=== PATIENT | female | born 1980 | race Caucasian/White ===

== ENCOUNTER → 2018-01-16 11:13 | Day surgery (SDC) | payer OTHER, SELFPAY ==
[2018-01-15 14:01] VITALS: BMI 19.3
[2018-01-16] VITALS (10 sets, daily range): BP systolic 98–141; BP diastolic 64–88; PULSE 60–80; RESP 13–17; TEMP 36.1–36.4; O2SAT 96–100; BMI 19.2
--- NOTE | 2018-01-16 13:13 | PM.PREOP ---
Pre-operative Note Interval Note Changes to the H&P: None Pre-op Check: History & Physical Reviewed
[2018-01-16] MEDS: SCOPOLAMINE 1 PATCH TOP (13:14)
[2018-01-16] MEDS: LACTATED RINGERS 1,000 ML 42 ML IV (13:20)
--- NOTE | 2018-01-16 13:28 | SUR.OPER ---
Lithotomy on padded OR bed, head on pillow, arms secured on padded arm boards at <90 degrees abduction. Legs secured in padded yellow fins stirrups.
[2018-01-16] MEDS: BUPIVACAINE 0.25% W/ EPI 50 ML VIAL INJ (14:00)
[2018-01-16] MEDS: SILVER NITRATE STICK 2 EACH TOP (14:02)
[2018-01-16] MEDS: fentaNYL 100 MCG/2 ML INJ 25 MCG IV (14:36)
[2018-01-16] MEDS: ACETAMINOPHEN IV 1,000 MG/100 ML VIAL 400 MG IV (14:55)
--- NOTE | 2018-01-16 14:59 | OP_ITS ---
Procedure: Procedures Operation Date: 01/16/18 13:15 Actual Procedures Side Surgeon p Diagnostic laparoscopy w/possible fulgeration of endometriosis, poss biopsies Toña Medrano MD s Intrauterine Device Insertion Toña Medrano MD Indications: Patient is a 37-year-old [employer] 1 with several months of worsening pelvic pain and abdominal pain. Pain has not been confined to her menses but worsens around the time of her menses and is accompanied by nausea. Pain intensity is up to 7/10, and the location varies with symptoms being more periumbilical, along the sides, or deep in the pelvis. She also describes pain and fullness at the right upper quadrant and right flank. She only takes Motrin 200 mg a few times per week but tries not to take too much. Pain is increased with crutches. She also complains of bloating and abdominal distention with nausea. With regards to her menses, she has passed large clots for several menses in the last few months, although this has been intermittent. She has had a negative CT scan of the abdomen and pelvis. Her [employer] history is otherwise notable for hysteroscopic resection of polyps in the past. She has been reluctant to start medication withou having a clear idea of what is causing her pain. She has been seen by a silk screen operator and had a negative colonoscopy. She does have a past medical history of diverticulitis but no current findings by colonoscopy or on CT. She has a family history of irritable bowel syndrome, but she herself has not been diagnosed with such. Prior to initiating hormonal therapy for suppression of ovulation (as empiric treatment for an ovulatory related pain), the patient desired to have a laparoscopy for further evaluation. The risks benefits limitations and alternatives to such were discussed and the consent was reviewed and signed prior to the date of surgery. Surgeon: Toña Medrano Health Services Manager: Jerrod Moss Anesthesia Type: General Operative Notes Findings: 1. Exam under anesthesia: The uterus is anteverted, and no adnexal masses are palpable. 2. Laparoscopic findings: The pelvis was visualized completely. Fallopian tubes and ovaries were normal in appearance. There is a small approximately 5 mm to 7 mm subserosal uterine fibroid at the anterior lower uterine segment. The appendix was visualized and appeared normal. The liver edge was visualized and appeared normal. The cul-de-sac, uterosacral ligaments, ovarian fossa say, and anterior bladder all appeared normal with no evidence of endometriosis or other abnormalities. Closure Type: primary Specimen(s): none Applied: device(s) and implant(s) (Mirena Intrauterine Device, Lot # [id number], exp date 12/2019) Estimated blood loss (mL): 15 Blood products transfused: none Procedure in detail: The patient was taken to the operating room, where general endotracheal anesthesia was administered without complications. The patient was placed into the low dorsal lithotomy position with her lower extremities in Yellofin stirrups. Exam under anesthesia was then performed with the findings noted above. Perineum, vagina, and abdomen were then prepped and draped in a sterile fashion. Urinary catheterization was then performed using an in-and out catheter. Procedure time-out was then performed. Attention was first turned to the perineum for placement of the uterine manipulator. A sterile bivalve speculum was inserted into the vagina, then the anterior lip of the cervix was grasped with a single-tooth tenaculum. The cervix was then serially dilated using Prateek dilators until a HUMI uterine manipulator could be advanced. The balloon was inflated, then the tenaculum and speculum removed from the vagina. Local anesthetic was then injected infraumbilically using 0.25% Marcaine with epinephrine. A curvilinear incision was then made with a scalpel below the umbilicus measuring approximately 7 mm in length. The abdominal wall was then grasped and tented up while a Veress needle was inserted through the incision. Saline drop test was suggestive of intraperitoneal placement. Carbon dioxide gas insufflation was then performed with appropriate opening pressures noted. After instilling approximately 2 L of carbon dioxide, a 5 mm 0 degree laparoscope within a 5 mm trocar was inserted through the anterior layers of the abdominal wall using Optiview technique. The abdomen and pelvis were visualized with the findings as noted above. The patient was placed into Trendelenburg position for better visualization. A second trocar was inserted at the patient's right lower quadrant. This was done by first instilling local anesthetic, then incising the skin and inserting a 5 mm trocar under direct visualization using the laparoscopic. An atraumatic grasper was then utilized to manipulate the tissue and improve visualization throughout the pelvis. Once the findings were noted, the carbon dioxide gas was allowed to escape and the trocars removed from the abdomen. The trocar sites were then closed with 4-0 Monocryl in a subcuticular fashion. Exofin skin glue was then applied. Attention was then returned to the patient's perineum, where the uterine manipulator balloon was deflated and the uterine manipulator removed. The speculum was then replaced into the vagina, and the anterior lip of the cervix was grasped with a single-tooth tenaculum. The uterus sounded to 7.5 cm. A Mirena intrauterine device was then inserted, and the strings were trimmed to 4 cm. The tenaculum was then removed, and the tenaculum sites hemostatic after application of silver nitrate. The speculum was then removed from the vagina. At this point the procedure was deemed complete. Sponge, lap, and needle count were correct x3. The patient was subsequently awakened, extubated, and transferred to the PACU in stable condition. Complications: none Post-operative Condition: stable Disposition: same day surgery Plan for aftercare: See handout
[2018-01-16] MEDS: OXYCODONE/ACETAMINOPHEN 5/325 TABLET 1 TAB PO (15:03)
[2018-01-16] MEDS: APREPITANT 40 MG CAPSULE PO (16:22)
== END | disposition home or self-care (01) ==
PROVIDERS: Family Provider General Practice; PCP General Practice; Visit Provider Obstetrics & Gynecology
PROC: (CPT 49320; principal; 2018-01-16 13:15)
PROC: (CPT 49320; 2018-01-16 13:15)
DX: R10.2 Pelvic and perineal pain (principal); Z30.430 Encounter for insertion of intrauterine contraceptive device; D25.2 Subserosal leiomyoma of uterus
CPT/HCPCS: 49320; 58300; J0131; J1100; J1885; J2250; J2405; J2704; J3010; J8501

== ENCOUNTER 2020-03-30 06:32 | Emergency (ER) | payer OTHER, SELFPAY ==
--- NOTE | 2020-03-30 06:34 | ED_ITS ---
HPI - Ear Problem General Chief complaint: Upper Respiratory Symptoms Stated complaint: possible ear/sinus infection Time Seen by Provider: 03/30/20 06:34 Source: patient Mode of arrival: Ambulatory Limitations: no limitations History of Present Illness HPI Narrative: 39-year-old female nonsmoker noncontributory medical history presents with a chief complaint of severe left ear pain in the absence of injury, fever or chills. She has had some runny nose, sneezing and left ear pain for the past few days. She denies any drainage. She denies some radiation into the left side of her throat. She has denies chest pain, shortness of breath or cough. She denies nausea, vomiting or diarrhea. MD Complaint: ear pain Location: left ear Duration: constant Severity: moderate Relieving factors: nothing Exacerbating factors: nothing Discharge from ear: no Treatment prior to arrival: none Related Data Home Medications Medication Instructions Recorded Confirmed ibuprofen 800 mg PO TID PRN 01/15/18 01/15/18 levonorgestrel [Mirena] 1 device INTRAUTERINE DIRECTED 01/15/18 01/16/18 oxycodone-acetaminophen [Percocet] 2 tab PO Q4-6H PRN 01/15/18 01/15/18 Allergies Allergy/AdvReac Type Severity Reaction Status Date / Time codeine [CODEINE] Allergy Intermediate RED Verified 03/30/20 06:37 BLOTCHES, ITCHY, VOMITING hydrocodone [From VICODIN] Allergy Intermediate BLOTHCHY, Verified 03/30/20 06:37 ITCHY, VOMITING Review of Systems Constitutional Constitutional: Denies chills, Denies fatigue, Denies fever(s), Denies frequent falls, Denies lethargy and Denies weakness Eyes Eyes: Denies change in vision, Denies eye discharge, Denies irritation and Denies loss of vision ENT Ears, Nose, Mouth, and Throat: Denies change in voice, Denies dizziness, Reports otalgia, Denies neck pain, Denies sore throat and Denies throat swelling Cardiovascular Cardiovascular: Denies chest pain, Denies irregular heart rhythm, Denies lightheadedness, Denies palpitations, Denies dyspnea, Denies dyspnea on exertion and Denies orthopnea Respiratory Respiratory: Denies cough, Denies dyspnea, Denies dyspnea on exertion and Denies wheezing Gastrointestinal Gastrointestinal: Denies abdominal pain, Denies change in bowel habits, Denies diarrhea, Denies nausea and Denies vomiting Musculoskeletal Musculoskeletal: Denies neck pain and Denies numbness Integumentary/Breasts Skin/Breast: Denies pruritus, Denies erythema, Denies rash and Denies wounds Neurologic Neurologic: Denies behavioral changes, Denies confusion, Denies dizziness, Denies frequent falls, Denies loss of vision, Denies numbness and Denies weakness Psychiatric Psychiatric: Denies anxiety, Denies behavioral changes, Denies confusion, Denies depression, Denies homicidal ideation and Denies suicidal ideation Endocrine Endocrine: Denies fatigue, Denies flushing and Denies palpitations Hematologic/Lymphatic Hematologic/Lymphatic: Denies easy bruising Allergic/Immunologic Allergic/Immunologic: Denies urticaria, Denies throat swelling and Denies wheezing Patient History Medical History Arthralgia (Acute) Cervical cyst (Acute) Diverticulitis (Acute) Endometriosis (Acute) Lower abdominal pain (Acute) Migraines (Acute) TMJ (dislocation of temporomandibular joint) (Acute) Uterine cyst (Acute) Surgical History Hx of tonsillectomy (Acute) Status post hysteroscopic polypectomy (Acute) Social History household members: family Smoking Status: Never smoker alcohol intake: never Smoking Status: Never smoker Exam Narrative Exam Narrative: GEN: AOx3 and in mild distress EYES: Pupils are equal, round, and reactive to light and accommodation. Extraoccular muscles are intact bilaterally. There is no subconjunctival hemorrhage or exudate. ENT: Clear postnasal drip, no posterior pharyngeal erythema or exudate. No tender lymphadenopathy. Left tympanic membrane is very slightly bulging with a clear effusion. No erythema or opacification CHEST: Lungs are clear to auscultation bilaterally and free of wheezes, rales, or rhonchi. Heart rate is regular rhythm, there are no murmurs, clicks, rubs, or gallops. There is no chest wall tenderness. ABD: Abdomen is soft and nontender. There is no guarding or rebound. Bowel sounds are normal in all 4 quadrants. There is no mass or organomegaly. EXT: Full painless ROM of all extremities with no loss of sensation or strength. SKIN: Warm, pink, and dry. No erythema or rash Initial Vital Signs Initial Vital Signs: Vital Signs Temperature 97.5 F L 03/30/20 06:37 Pulse Rate 91 H 03/30/20 06:37 Respiratory Rate 15 03/30/20 06:37 Blood Pressure 154/80 H 03/30/20 06:37 Pulse Oximetry 100 03/30/20 06:37 Course Vital Signs Vital signs: Vital Signs - 8 hr 03/30/20 06:37 Temperature 97.5 F L Pulse Rate 91 H Respiratory Rate 15 Blood Pressure 154/80 H Pulse Oximetry 100 Discharge Plan Departure Patient Disposition: Home Clinical Impression: Otitis media Qualifiers: Otitis media type: serous Chronicity: acute Laterality: left Recurrence: non- recurrent Qualified Code(s): H65.02 - Acute serous otitis media, left ear Discharge Date/Time: 03/30/20 06:48 Instructions: DI for Ear Pain-Adult Activity Restrictions/Additional Instructions: *You have been diagnosed with [left ear pain with clear fluid behind your ear drum] *What to do: *Take medications as directed: [id number] antihistamines (zyrtec, tadeo, etc), decongestants (pseudoephedrine or phenylephrine) and anti- inflammatories (ibuprofen, Naprosyn, etc.) *Follow up with your primary care provider in 2-3 days, call for an appointment. Let them know you were seen in the Emergency Department and that we ask that you be seen in follow up *Return to ER if you should have any new, worsening or concerning symptoms Prescriptions: No Action levonorgestrel [Mirena] 20 mcg/24 hr (5 years) Intrauterine Device 1 device Intrauterine DIRECTED RF: 0 ibuprofen 800 mg Tablet 800 mg PO TID PRN (Reason: Pain) RF: 0 oxycodone-acetaminophen [Percocet] 5-325 mg Tablet 2 tab PO Q4-6H PRN (Reason: Pain) RF: 0 Referrals: [facility] [Outside]
[2020-03-30 06:37] VITALS: BP 154/80; PULSE 91; RESP 15; TEMP 36.4; O2SAT 100; BMI 21.5
== END 2020-03-30 06:48 | disposition home or self-care (01) ==
PROVIDERS: Emergency Provider Emergency Medicine; Family Provider General Practice
DX: H65.02 Acute serous otitis media, left ear (principal)
CPT/HCPCS: 99281

== ENCOUNTER 2020-05-04 11:48 | Emergency (ER) | payer OTHER, SELFPAY ==
[2020-05-04] VITALS (8 sets, daily range): BP systolic 97–131; BP diastolic 55–84; PULSE 78–103; RESP 18; TEMP 36.9; O2SAT 89–100; BMI 21.9
[2020-05-04 12:14] LABS: Add Manual Diff / Slide Review NO; Basophils Absolute Auto 100 /uL (0-100); Basophils Percent Auto 0.4 % (0-2); Eosinophils Absolute Auto 100 /uL (0-450); Eosinophils Percent Auto 0.4 % (2-4); Hematocrit 38.2 % (36-46); Hemoglobin 12.9 g/dL (12.0-16.0); Lymphocytes Absolute Auto 1300 /uL (1100-4500); Lymphocytes Percent Auto 7.6 % (25-40); Mean Corpuscular HGB Conc 33.9 % (30-36); Mean Corpuscular Hemoglobin 32.3 PG (26-34); Mean Corpuscular Volume 95.4 fL (80-100); Monocytes Absolute Auto 1200 /uL (0-900); Neutrophils Absolute Auto 14800 /uL (1500-7000); Neutrophils Percent Auto 84.6 % (50-75); Platelet Count 327 X10^3/uL (150-400); Red Blood Cell Count 4.01 X10^6/uL (4.0-5.2); Red Cell Distribution Width 12.1 % (11.6-14.8); White Blood Cell Count 17.4 X10^3/uL (4.5-11.0)
[2020-05-04 12:17] LABS: INR 1.1 (0.9-1.3); Prothrombin Time 13.1 SECONDS (10.1-12.7)
[2020-05-04 12:20] LABS: PTT Partial Thromboplastin Tim 34 SECONDS (26.4-36.2)
[2020-05-04 12:21] LABS: Alanine Aminotransferase 20 IU/L (<35); Albumin 4.7 g/dL (3.5-5.0); Albumin Globulin Ratio 1.5 (1.0-2.8); Alkaline Phosphatase 117 U/L (38-126); Aspartate Aminotransferase 26 IU/L (14-36); BUN Creatinine Ratio 15.5 (6-22); Bilirubin Total 0.7 mg/dL (0.2-1.3); Blood Urea Nitrogen 9 mg/dL (7-17); Calcium 9.3 mg/dL (8.4-10.2); Carbon Dioxide 25 mmol/L (22-32); Chloride 103 mmol/L (98-107); Estimated Glomerular Filt Rate > 60.0 mL/min (>60); Globulin 3.1 g/dL (1.7-4.1); Glucose 96 mg/dL (70-100); HEMOLYSIS 19 (0-50); Lipase 33 U/L (23-300); Potassium 3.8 mmol/L (3.4-5.1); Sodium 138 mmol/L (137-145); Total Protein 7.8 g/dL (6.3-8.2)
--- NOTE | 2020-05-04 12:24 | ED_ITS ---
HPI - Abdominal Pain <YANDY Rice - Last Filed: 05/04/20 20:41> General Chief Complaint: Abdominal Pain Stated Complaint: abdominal discomfort Time Seen by Provider: 05/04/20 12:04 Source: patient Mode of arrival: Ambulatory Limitations: no limitations History of Present Illness HPI narrative: 39yo female with a history of diverticulitis and IBS, presents to the ED for abdominal pain that started suddenly last night around 1:00 a.m. Patient states she tried to take a hot shower this morning to relieve the pain which did not help. She states she drove to [employer] today in the pain continued increased. Patient tried eating a banana and saltines but then developed nausea. She denies any vomiting or diarrhea. Patient had a bowel movement last night but did not have a bowel movement this morning which is unusual for her. Patient denies any high fevers, chest pain, shortness of breath, abdominal surgeries, dizziness, pain with urination, or vaginal discharge. She denies any sick contacts. Related Data Home Medications Medication Instructions Recorded Confirmed ibuprofen 800 mg PO TID PRN 01/15/18 01/15/18 levonorgestrel [Mirena] 1 device INTRAUTERINE DIRECTED 01/15/18 01/16/18 oxycodone-acetaminophen [Percocet] 2 tab PO Q4-6H PRN 01/15/18 01/15/18 Previous Rx's Medication Instructions Recorded ondansetron 4 mg PO Q6H PRN #10 tab 05/04/20 Allergies Allergy/AdvReac Type Severity Reaction Status Date / Time codeine [CODEINE] Allergy Intermediate RED Verified 03/30/20 06:37 BLOTCHES, ITCHY, VOMITING hydrocodone [From VICODIN] Allergy Intermediate BLOTHCHY, Verified 03/30/20 06:37 ITCHY, VOMITING Review of Systems <YANDY Rice - Last Filed: 05/04/20 20:41> Review of Systems Narrative: REVIEW OF SYSTEMS: GENERAL: Denies fever, chills, malaise, or wt. loss. HENT: No head trauma, sore throat, or dysphagia. EYES: No loss of vision, double vision, eye pain, or irritation. CARDIOVASCULAR: No chest pain, palpitations, or orthopnea. RESPIRATORY: No shortness of breath or cough. GASTROINTESTINAL: Complains of abdominal pain, see HPI GENITOURINARY: No flank pain, urinary incontinence, hesitancy, frequency, or dysuria. MUSCULOSKELETAL: No pain, weakness, or trauma. INTEGUMENTARY: No rash, lesions, or pruritus. NEURO: No numbness, tingling, memory loss, confusion, or headaches. PSYCH: No behavior or mood changes. Patient History <YANDY Rice - Last Filed: 05/04/20 20:41> Medical History Arthralgia (Acute) Cervical cyst (Acute) Diverticulitis (Acute) Endometriosis (Acute) Lower abdominal pain (Acute) Migraines (Acute) TMJ (dislocation of temporomandibular joint) (Acute) Uterine cyst (Acute) Surgical History Hx of tonsillectomy (Acute) Status post hysteroscopic polypectomy (Acute) Social History household members: family Smoking Status: Never smoker alcohol intake: never Smoking Status: Never smoker alcohol intake frequency: 0-2 drinks per day Substance Use Type: does not use Exam <YANDY Rice - Last Filed: 05/04/20 20:41> Initial Vital Signs Initial Vital Signs: Vital Signs Temperature 98.5 F 05/04/20 11:55 Pulse Rate 103 H 05/04/20 11:55 Respiratory Rate 18 05/04/20 11:55 Blood Pressure 131/84 05/04/20 11:55 Pulse Oximetry 98 05/04/20 11:55 PHYSICAL EXAMINATION: GENERAL: Well groomed, alert, and cooperative. Answers questions promptly and appropriately. Vital signs noted. HENT: Normocephalic, atraumatic. Hearing intact. Oral mucosa is pink and moist. EYES: Conjunctiva pink, sclera white, no periorbital swelling. CARDIOVASCULAR: S1 and S2 sounds normal. Mild tachycardia and rhythm, no murmurs, clicks, or bruits. No pedal edema. RESPIRATORY: Normal respiratory rate, trachea midline, airway patent. No stridor, nasal flaring or accessory muscle use. Lungs are clear in all woods without wheeze, rhonchi, or crackles. GASTROINTESTINAL: Bowel sounds normoactive. Abdomen is soft, significant te nderness noted to left lower quadrant, no right lower quadrant or right upper quadrant tenderness.. No organomegaly, no palpable masses. GENITALURINARY: No flank tenderness. MUSCULOSKELETAL: Normal gait and coordination. Equal tone and mass bilaterally. EXTREMITIES: CMS intact, no pedal edema. SKIN: Warm, dry, soft, appropriate color for ethnicity. No lesions, rashes, or wounds to visualized areas. NEURO: Alert and Oriented X 3. Good coordination. No ataxia, or sensory deficits, or cognitive issues. PSYCH: Appropriate affect and mood. <To Whiteside MD - Last Filed: 05/29/20 07:11> Initial Vital Signs Initial Vital Signs: Vital Signs Temperature 98.5 F 05/04/20 11:55 Pulse Rate 103 H 05/04/20 11:55 Respiratory Rate 18 05/04/20 11:55 Blood Pressure 131/84 05/04/20 11:55 Pulse Oximetry 98 05/04/20 11:55 Course <YANDY Rice - Last Filed: 05/04/20 20:41> Course Course Narrative: Patient able to tolerate p.o. medications and food and fluids without vomiting. Orders Ordered: Discontinued Medications Amoxicillin/Clavulanate Potassium (Augmentin 875-125 Mg) 1 tab PO NOW ONE Stop: 05/04/20 13:13 Last Admin: 05/04/20 14:17 Dose: 1 tab Documented by: NILA Sodium Chloride (Normal Saline 0.9%) 1,000 mls @ 1,000 mls/hr IV BOLUS ONE Stop: 05/04/20 13:21 Last Infusion: 05/04/20 14:13 Dose: 0 mls/hr Documented by: Admin: 05/04/20 12:45 Dose: 1,000 mls/hr Documented by: JERICA Ketorolac Tromethamine (Toradol) 30 mg IV NOW ONE Stop: 05/04/20 12:23 Last Admin: 05/04/20 12:45 Dose: 30 mg Documented by: JERICA Ondansetron HCl (Zofran) 4 mg IV NOW ONE Stop: 05/04/20 12:23 Last Admin: 05/04/20 12:46 Dose: 4 mg Documented by: JERICA Vital Signs Vital signs: Vital Signs - 8 hr 05/04/20 13:00 05/04/20 13:30 05/04/20 14:12 Pulse Rate 90 87 Respiratory Rate 18 Blood Pressure 103/56 L 97/55 L Pulse Oximetry 100 100 05/04/20 14:20 Pulse Rate 78 Respiratory Rate Blood Pressure 111/78 Pulse Oximetry 100 <To Whiteside MD - Last Filed: 05/29/20 07:11> Orders Ordered: Discontinued Medications Amoxicillin/Clavulanate Potassium (Augmentin 875-125 Mg) 1 tab PO NOW ONE Stop: 05/04/20 13:13 Last Admin: 05/04/20 14:17 Dose: 1 tab Documented by: NILA Sodium Chloride (Normal Saline 0.9%) 1,000 mls @ 1,000 mls/hr IV BOLUS ONE Stop: 05/04/20 13:21 Last Infusion: 05/04/20 14:13 Dose: 0 mls/hr Documented by: Admin: 05/04/20 12:45 Dose: 1,000 mls/hr Documented by: JERICA Ketorolac Tromethamine (Toradol) 30 mg IV NOW ONE Stop: 05/04/20 12:23 Last Admin: 05/04/20 12:45 Dose: 30 mg Documented by: JERICA Ondansetron HCl (Zofran) 4 mg IV NOW ONE Stop: 05/04/20 12:23 Last Admin: 05/04/20 12:46 Dose: 4 mg Documented by: JERICA Vital Signs Vital signs: Vital Signs - 8 hr 05/04/20 13:00 05/04/20 13:30 05/04/20 14:12 Pulse Rate 90 87 Respiratory Rate 18 Blood Pressure 103/56 L 97/55 L Pulse Oximetry 100 100 05/04/20 14:20 Pulse Rate 78 Respiratory Rate Blood Pressure 111/78 Pulse Oximetry 100 MDM - Abdominal Pain <YANDY Rice - Last Filed: 05/04/20 20:41> Medical Records Attestation: I reviewed the patient's medical records. Lab Data Attestation: I reviewed the patient's lab results. Result diagrams: 05/04/20 12:11 05/04/20 12:11 Labs: Lab Results 08/20/20 08/20/20 08/20/20 Range/Units 12:11 12:11 12:11 WBC 17.4 H (4.5-11.0) X10^3/uL RBC 4.01 (4.0-5.2) X10^6/uL Hgb 12.9 (12.0-16.0) g/dL Hct 38.2 (36-46) % MCV 95.4 (80-100) fL MCH 32.3 (26-34) PG MCHC 33.9 (30-36) % RDW 12.1 (11.6-14.8) % Plt Count 327 (150-400) X10^3/uL Neut % (Auto) 84.6 H (50-75) % Lymph % (Auto) 7.6 L (25-40) % [place] % (Auto) 7.0 (3-14) % Eos % (Auto) 0.4 L (2-4) % Baso % (Auto) 0.4 (0-2) % Neut # (Auto) 75409 H (6263-3677) /uL Lymph # (Auto) 1300 (8098-4692) /uL [place] # (Auto) 1200 H (0-900) /uL Eos # (Auto) 100 (0-450) /uL Baso # (Auto) 100 (0-100) /uL PT 13.1 H (10.1-12.7) SECONDS INR 1.1 (0.9-1.3) APTT 34 (26.4-36.2) SECONDS Sodium 138 (137-145) mmol/L Potassium 3.8 (3.4-5.1) mmol/L Chloride 103 (98-107) mmol/L Carbon Dioxide 25 (22-32) mmol/L BUN 9 (7-17) mg/dL Creatinine 0.58 (0.52-1.04) mg/dL Estimated GFR > 60.0 (>60) mL/min BUN/Creatinine Ratio 15.5 (6-22) Glucose 96 (70-100) mg/dL Calcium 9.3 (8.4-10.2) mg/dL Total Bilirubin 0.7 (0.2-1.3) mg/dL AST 26 (14-36) IU/L ALT 20 (<35) IU/L Alkaline Phosphatase 117 (38-126) U/L Total Protein 7.8 (6.3-8.2) g/dL Albumin 4.7 (3.5-5.0) g/dL Globulin 3.1 (1.7-4.1) g/dL Albumin/Globulin Ratio 1.5 (1.0-2.8) Lipase 33 (23-300) U/L Point of care testing: Point of Care Testing Test Results Negative Urine Dip Bedside Urine Glucose Negative Bedside Urine Bilirubin - Negative Bedside Urine Ketone - Negative Urine Specific [place] 1.010 Bedside Urine Occult Blood - Negative Bedside Urine pH 7.0 Bedside Urine Protein - Negative Bedside Urine Urobilinogen - Negative Bedside Urine Nitrite - Negative Bedside Urine Leukocytes - Negative Esterase Imaging Data CT scan - abdomen/pelvis: Radiologist's Impression: [address] [address] [address] Scan Report Signed Patient: Sakshi Bell MMR#: [id number] : 1980Acct:[id number] Age/Sex: 39 / FDate of Service: 05/04/20 Loc: ED Accession Number: [id number] Procedure: CT abdomen pelvis w con Ordering Provider: aLure Alves PROCEDURE: CT ABDOMEN PELVIS W CON INDICATIONS: LLQ pain, concern for diverticulitis TECHNIQUE: After the administration of intravenous contrast, 5 mm thick sections acquired from the diaphragm to the symphysis. 5 mm coronal and sagittal reformats were acquired. For radiation dose reduction, the following was used: automated exposure control, adjustment of mA and/or kV according to patient size. COMPARISON: [facility], CT, ABDOMEN/PELVIS WITH CONTRAST, 12/22/2013, 17:24. FINDINGS: Image quality: Excellent. ABDOMEN: Lung bases: Lung bases are clear. Heart size is normal. Solid organs: Liver is normal in size and enhancement. Gallbladder is within normal limits. Biliary system is non dilated. Pancreas enhances normally. Spleen is normal in size and enhancement. No adrenal nodules. Kidneys demonstrate normal size and enhancement, without hydronephrosis. Peritoneum and bowel: There is no evidence of bowel obstruction. Distal gastric wall thickening and edema is seen. There is significant wall thickening and edema involving proximal portion of the sigmoid colon in right upper quadrant inferior to the gallbladder lumen with significant pericolonic fat stranding and narrowing of proximal sigmoid colon lumen. A few colonic diverticuli are seen. No abscess collection. No peritoneal free fluid or free air. Nodes and vessels: No retroperitoneal or mesenteric adenopathy by size criteria. Aorta and inferior vena cava are normal in size. Miscellaneous: No ventral hernias. PELVIS: Genitourinary: There is mild diffuse bladder wall thickening, no discrete bladder wall mass. Intrauterine device is seen in normal appearing uterus. Right ovarian cyst is seen measures 1.7 centimeters in size. Miscellaneous: No inguinal hernias or adenopathy. Bones: No suspicious bony lesions. No vertebral body compression fractures. IMPRESSION: 1. Finding is most suggestive of acute diverticulitis involving proximal transverse colon just distal to the hepatic flexure with significant narrowing of the lumen, wall thickening and pericolonic fat stranding. No abscess collection. No free fluid or free air. 2. Thickening of adjacent distal gastric wall, most likely represent reactive inflammatory changes. Superimposed distal gastritis cannot be excluded. 3. Intrauterine device in place. Questionable diffuse bladder wall thickening. Right ovarian cyst as above. Dictated by: Rudolph Kern M.D. on 05/04/2020 at 13:02 Approved by: Rudolph Kern M.D. on 05/04/2020 at 13:05 ECG Data Interpretation: 1240: Normal sinus rhythm, rate 82, FL interval 128, QTC 452. No ST elevation or ST depression. T-wave inversion noted in V1. EKG also vi ewed by Dr. Whiteside per protocol. [facility] Narrative Medical decision making narrative: 39-year-old female presents to the emergency department for left sided abdominal pain. I Suspect patient's pain is most likely caused by diverticulitis given left lower quadrant pain, diverticulitis on CT, history of diverticulitis, and on going pain over the past 12 hours. Patient has a elevated white blood cell count is hemodynamically stable without tachycardia (post administration of fluids) or fever. Patient is able to tolerate p.o. denies any prior vomiting. She is a candidate for outpatient treatment. No concerns for perforation given CT imaging. Strict return precautions given for new or worsening symptoms. Patient agreed to plan of care verbalized understanding. <To Whiteside MD - Last Filed: 05/29/20 07:11> Lab Data Labs: Lab Results 05/04/20 05/04/20 05/04/20 Range/Units 12:11 12:11 12:11 WBC 17.4 H (4.5-11.0) X10^3/uL RBC 4.01 (4.0-5.2) X10^6/uL Hgb 12.9 (12.0-16.0) g/dL Hct 38.2 (36-46) % MCV 95.4 (80-100) fL MCH 32.3 (26-34) PG MCHC 33.9 (30-36) % RDW 12.1 (11.6-14.8) % Plt Count 327 (150-400) X10^3/uL Neut % (Auto) 84.6 H (50-75) % Lymph % (Auto) 7.6 L (25-40) % [place] % (Auto) 7.0 (3-14) % Eos % (Auto) 0.4 L (2-4) % Baso % (Auto) 0.4 (0-2) % Neut # (Auto) 20432 H (4089-7086) /uL Lymph # (Auto) 1300 (6713-0547) /uL [place] # (Auto) 1200 H (0-900) /uL Eos # (Auto) 100 (0-450) /uL Baso # (Auto) 100 (0-100) /uL PT 13.1 H (10.1-12.7) SECONDS INR 1.1 (0.9-1.3) APTT 34 (26.4-36.2) SECONDS Sodium 138 (137-145) mmol/L Potassium 3.8 (3.4-5.1) mmol/L Chloride 103 (98-107) mmol/L Carbon Dioxide 25 (22-32) mmol/L BUN 9 (7-17) mg/dL Creatinine 0.58 (0.52-1.04) mg/dL Estimated GFR > 60.0 (>60) mL/min BUN/Creatinine Ratio 15.5 (6-22) Glucose 96 (70-100) mg/dL Calcium 9.3 (8.4-10.2) mg/dL Total Bilirubin 0.7 (0.2-1.3) mg/dL AST 26 (14-36) IU/L ALT 20 (<35) IU/L Alkaline Phosphatase 117 (38-126) U/L Total Protein 7.8 (6.3-8.2) g/dL Albumin 4.7 (3.5-5.0) g/dL Globulin 3.1 (1.7-4.1) g/dL Albumin/Globulin Ratio 1.5 (1.0-2.8) Lipase 33 (23-300) U/L Point of care testing: Point of Care Testing Test Results Negative Urine Dip Bedside Urine Glucose Negative Bedside Urine Bilirubin - Negative Bedside Urine Ketone - Negative Urine Specific [place] 1.010 Bedside Urine Occult Blood - Negative Bedside Urine pH 7.0 Bedside Urine Protein - Negative Bedside Urine Urobilinogen - Negative Bedside Urine Nitrite - Negative Bedside Urine Leukocytes - Negative Esterase Discharge Plan Departure Patient Disposition: Home Clinical Impression: Diverticulitis Discharge Date/Time: 05/04/20 14:30 Instructions: DI for Diverticulitis Activity Restrictions/Additional Instructions: Thank you for entrusting me with your care today. As discussed, your CT shows diverticulitis. I prescribed you antibiotics and nausea medication. Please take these accordingly. I suggest following up with your GI doctor or primary care provider in the next 1-2 weeks for further evaluation. Return emergency department immediately if you develop uncontrollable vomiting, high fevers, worsening pain, or any other concerns. Prescriptions: New ondansetron 4 mg tablet,disintegrating 4 mg PO Q6H PRN (Reason: nausea and vomiting) Qty: 10 RF: 0 No Action levonorgestrel [Mirena] 20 mcg/24 hr (5 years) Intrauterine Device 1 device Intrauterine DIRECTED RF: 0 ibuprofen 800 mg Tablet 800 mg PO TID PRN (Reason: Pain) RF: 0 oxycodone-acetaminophen [Percocet] 5-325 mg Tablet 2 tab PO Q4-6H PRN (Reason: Pain) RF: 0
[2020-05-04] MEDS: KETOROLAC 60 MG/2 ML VIAL 30 MG IV (12:45)
[2020-05-04] MEDS: SODIUM CHLORIDE 0.9% 1,000 ML 1000 ML IV (12:45)
[2020-05-04] MEDS: ONDANSETRON 4 MG/2 ML INJ IV (12:46)
[2020-05-04] MEDS: AMOXICILLIN/CLAV 875/125 MG 1 TAB PO (14:17)
== END 2020-05-04 14:30 | disposition home or self-care (01) ==
PROVIDERS: Emergency Provider Nurse Practitioner; Family Provider General Practice
DX: K57.92 Diverticulitis of intestine, part unspecified, without perforation or abscess without bleeding (principal)
CPT/HCPCS: 36415; 74177; 80053; 81003; 81025; 83690; 85025; 85610; 85730; 93005; 93010; 96361; 96374; 96375; 99284; J1885; J2405

== ENCOUNTER 2020-09-30 11:32 | Emergency (ER) | payer OTHER, SELFPAY ==
[2020-09-30] VITALS (9 sets, daily range): BP systolic 99–152; BP diastolic 62–86; PULSE 65–91; RESP 16; TEMP 35.9; O2SAT 94–100; BMI 21.2
--- NOTE | 2020-09-30 11:43 | ED.ABDPAIN ---
HPI - Abdominal Pain <FELIPA Westfall - Last Filed: 09/30/20 15:51> General Chief Complaint: Abdominal Pain Stated Complaint: abdominal pain, hx of diverticulitis Time Seen by Provider: 09/30/20 11:34 Source: patient Mode of arrival: Ambulatory Limitations: no limitations History of Present Illness HPI narrative: The patient is a 40-year-old female nonsmoker with history of diverticulitis who presents with a chief complaint of left lower quadrant pain that started yesterday. She states she has had several bouts of diverticulitis, which has ended up in inpatient stays for several days. She denies any see any fevers, but complains of nausea, no vomiting. Last bowel movement was this morning. She states this was a normal. She denies any fevers muscle aches or chills. She denies any history of abdominal surgeries. Denies any dysuria urgency or frequency. Denies any vaginal discharge. Denies any history of sexually transmitted infections or current possibility of sexually transmitted infections. Related Data Home Medications Medication Instructions Recorded Confirmed ibuprofen 800 mg PO TID PRN 01/15/18 01/15/18 levonorgestrel [Mirena] 1 device INTRAUTERINE DIRECTED 01/15/18 01/16/18 oxycodone-acetaminophen [Percocet] 2 tab PO Q4-6H PRN 01/15/18 01/15/18 Previous Rx's Medication Instructions Recorded ondansetron 4 mg PO Q6H PRN #10 tab 05/04/20 ondansetron 4 mg PO Q6H PRN #14 tab 09/30/20 Allergies Allergy/AdvReac Type Severity Reaction Status Date / Time codeine [CODEINE] Allergy Intermediate RED Verified 09/30/20 11:40 BLOTCHES, ITCHY, VOMITING hydrocodone [From VICODIN] Allergy Intermediate BLOTHCHY, Verified 09/30/20 11:40 ITCHY, VOMITING Review of Systems <FELIPA Westfall - Last Filed: 09/30/20 15:51> Review of Systems Narrative: GENERAL: Denies chills, fatigue, malaise, fever, sweats. HEENT: Denies sinus pain, ear pain, sore throat, difficulty swallowing, dizziness. RESPIRATORY: Denies dyspnea, cough, wheezing, hemoptysis, sputum. CARDIOVASCULAR: Denies chest pain, palpitations, orthopnea, edema, GASTROINTESTINAL: See HPI : Denies dysuria, frequency, incontinence, hematuria, urinary retention. MUSCULOSKELETAL: denies weakness, joint pain, or bony pain SKIN: Denies rash, skin lesions, or other NEUROLOGIC: Denies weakness, headache, numbness, change in speech, confusion, seizures, incoordination. PSYCHIATRIC: No concerning psychosocial issues. 12 point review of systems is negative except for those stated above Patient History <FELIPA Westfall - Last Filed: 09/30/20 15:51> Medical History (Updated 09/30/20 @ 15:30 by FELIPA Westfall) Arthralgia Cervical cyst Diverticulitis Endometriosis Lower abdominal pain Migraines TMJ (dislocation of temporomandibular joint) Uterine cyst Surgical History Hx of tonsillectomy Status post hysteroscopic polypectomy Social History household members: family Smoking Status: Never smoker alcohol intake: never Smoking Status: Never smoker alcohol intake frequency: 0-2 drinks per day Substance Use Type: does not use Exam <FELIPA Westfall - Last Filed: 09/30/20 15:51> Narrative Exam Narrative: GENERAL: This is a well-nourished, well-developed patient, in mild distress. HEAD: Atraumatic. Normocephalic. No temporal or scalp tenderness. EYES: Pupils equal round and reactive. Extraocular motions intact. No scleral icterus. No injection or drainage. ENT: Nose without bleeding, purulent drainage or septal hematoma. Wearing a mask. Airway patent. NECK: Trachea midline. No JVD or lymphadenopathy. Supple, nontender, no meningeal signs. CARDIOVASCULAR: Regular rate and rhythm RESPIRATORY: Clear to auscultation. Breath sounds equal bilaterally. No wheezes, rales, or rhonchi. No cough. No increased respiratory effort. No accessory muscle use. GASTROINTESTINAL: Abdomen soft, tenderness to palpation noted a left lower quadrant with slight guarding, nondistended. No hepato-splenomegaly, or palpable masses. Active bowel sounds all 4 quadrants Pelvic: With Sakshi Morgan RN at bedside. No external rashes or sores. No cervical motion tenderness on exam. No palpable adnexal masses or pain. Very white slight discharge noted in cultured. EXTREMITIES: No clubbing, cyanosis, or edema. No joint tenderness, effusion, or edema noted. BACK: Nontender without deformity or crepitance. No flank tenderness. NEURO: AOx3. SKIN: No rash or erythema on visible skin Initial Vital Signs Initial Vital Signs: Vital Signs Temperature 96.6 F L 09/30/20 11:38 Pulse Rate 85 09/30/20 11:38 Respiratory Rate 16 09/30/20 11:38 Blood Pressure 147/86 H 09/30/20 11:38 Pulse Oximetry 100 09/30/20 11:38 <Claudia Ribera MD - Last Filed: 09/30/20 17:09> Initial Vital Signs Initial Vital Signs: Vital Signs Temperature 96.6 F L 09/30/20 11:38 Pulse Rate 85 09/30/20 11:38 Respiratory Rate 16 09/30/20 11:38 Blood Pressure 147/86 H 09/30/20 11:38 Pulse Oximetry 100 09/30/20 11:38 Scores <FELIPA Westfall - Last Filed: 09/30/20 15:51> GCS Roseboom coma scale eye opening: Spontaneous Roseboom coma scale verbal response: Orientated Roseboom coma scale motor response: Obey commands Selvin coma scale total score: 15 Course <FELIPA Westfall - Last Filed: 09/30/20 15:51> Orders Ordered: ED Orders 09/30/20 11:55 Amylase Stat Complete Blood Count AUTO DIFF Stat Comprehensive Metabolic Panel Stat Lactate (Lactic Acid) Stat Lipase Stat Test Serum,Qual Stat 09/30/20 12:32 CT abdomen pelvis w con Stat 09/30/20 14:40 Genital Culture Stat Wet Prep Tric BV Isabella Stat Discontinued Medications Sodium Chloride (Normal Saline 0.9%) 1,000 mls @ 1,000 mls/hr IV BOLUS ONE Stop: 09/30/20 12:40 Last Infusion: 09/30/20 15:04 Dose: 0 mls/hr Documented by: Admin: 09/30/20 11:56 Dose: 1,000 mls/hr Documented by: ABIMAEL Ketorolac Tromethamine (Ketorolac 60 Mg/2 Ml Vial) 30 mg IV NOW ONE Stop: 09/30/20 11:46 Last Admin: 09/30/20 11:56 Dose: 30 mg Documented by: ABIMAEL Magnesium Citrate (Magnesium Citrate 300 Ml Solution) 300 ml PO NOW ONE Stop: 09/30/20 15:37 Last Admin: 09/30/20 15:46 Dose: 300 ml Documented by: EDGAR Ondansetron HCl (Ondansetron 4 Mg/2 Ml Inj) 4 mg IV NOW ONE Stop: 09/30/20 11:42 Last Admin: 09/30/20 11:56 Dose: 4 mg Documented by: ABIMAEL Vital Signs Vital signs: Vital Signs - 8 hr 09/30/20 11:38 09/30/20 12:17 09/30/20 12:18 Temperature 96.6 F L Pulse Rate 85 91 H 91 H Respiratory Rate 16 Blood Pressure 147/86 H 152/78 H Pulse Oximetry 100 100 100 09/30/20 12:30 09/30/20 13:00 09/30/20 13:19 Temperature Pulse Rate 79 65 72 Respiratory Rate 16 Blood Pressure 121/72 124/71 Pulse Oximetry 94 100 100 09/30/20 13:30 09/30/20 14:00 09/30/20 16:04 Temperature Pulse Rate 70 65 66 Respiratory Rate 16 Blood Pressure 99/62 102/70 112/78 Pulse Oximetry 99 99 99 <Claudia Ribera MD - Last Filed: 09/30/20 17:09> Orders Ordered: ED Orders 09/30/20 11:55 Amylase Stat Complete Blood Count AUTO DIFF Stat Comprehensive Metabolic Panel Stat Lactate (Lactic Acid) Stat Lipase Stat Test Serum,Qual Stat 09/30/20 12:32 CT abdomen pelvis w con Stat 09/30/20 14:40 Genital Culture Stat Wet Prep Tric BV Isabella Stat Discontinued Medications Sodium Chloride (Normal Saline 0.9%) 1,000 mls @ 1,000 mls/hr IV BOLUS ONE Stop: 09/30/20 12:40 Last Infusion: 09/30/20 15:04 Dose: 0 mls/hr Documented by: Admin: 09/30/20 11:56 Dose: 1,000 mls/hr Documented by: ABIMAEL Ketorolac Tromethamine (Ketorolac 60 Mg/2 Ml Vial) 30 mg IV NOW ONE Stop: 09/30/20 11:46 Last Admin: 09/30/20 11:56 Dose: 30 mg Documented by: ABIMAEL Magnesium Citrate (Magnesium Citrate 300 Ml Solution) 300 ml PO NOW ONE Stop: 09/30/20 15:37 Last Admin: 09/30/20 15:46 Dose: 300 ml Documented by: EDGAR Ondansetron HCl (Ondansetron 4 Mg/2 Ml Inj) 4 mg IV NOW ONE Stop: 09/30/20 11:42 Last Admin: 09/30/20 11:56 Dose: 4 mg Documented by: ABIMAEL Vital Signs Vital signs: Vital Signs - 8 hr 09/30/20 11:38 09/30/20 12:17 09/30/20 12:18 Temperature 96.6 F L Pulse Rate 85 91 H 91 H Respiratory Rate 16 Blood Pressure 147/86 H 152/78 H Pulse Oximetry 100 100 100 09/30/20 12:30 09/30/20 13:00 09/30/20 13:19 Temperature Pulse Rate 79 65 72 Respiratory Rate 16 Blood Pressure 121/72 124/71 Pulse Oximetry 94 100 100 09/30/20 13:30 09/30/20 14:00 09/30/20 16:04 Temperature Pulse Rate 70 65 66 Respiratory Rate 16 Blood Pressure 99/62 102/70 112/78 Pulse Oximetry 99 99 99 MDM - Abdominal Pain <GERMANIA Westfall-BC - Last Filed: 09/30/20 15:51> Differential Diagnosis Differential diagnosis: Likely abdominal pain, acute appendicitis, constipation and diverticulitis Lab Data Attestation: I reviewed the patient's lab results. Result diagrams: 09/30/20 11:55 09/30/20 11:55 Labs: Lab Results 09/30/20 09/30/20 09/30/20 Range/Units 11:55 11:55 11:55 WBC 6.8 (4.5-11.0) X10^3/uL RBC 4.10 (4.0-5.2) X10^6/uL Hgb 13.2 (12.0-16.0) g/dL Hct 39.4 (36-46) % MCV 96.2 (80-100) fL MCH 32.1 (26-34) PG MCHC 33.4 (30-36) % RDW 12.0 (11.6-14.8) % Plt Count 284 (150-400) X10^3/uL Neut % (Auto) 63.1 (50-75) % Lymph % (Auto) 27.8 (25-40) % [place] % (Auto) 7.0 (3-14) % Eos % (Auto) 1.5 L (2-4) % Baso % (Auto) 0.6 (0-2) % Neut # (Auto) 4300 (9875-0077) /uL Lymph # (Auto) 1900 (2015-0128) /uL [place] # (Auto) 500 (0-900) /uL Eos # (Auto) 100 (0-450) /uL Baso # (Auto) 0 (0-100) /uL Sodium 138 (137-145) mmol/L Potassium 4.2 (3.4-5.1) mmol/L Chloride 106 (98-107) mmol/L Carbon Dioxide 26 (22-32) mmol/L BUN 12 (7-17) mg/dL Creatinine 0.62 (0.52-1.04) mg/dL Estimated GFR > 60.0 (>60) mL/min BUN/Creatinine Ratio 19.4 (6-22) Glucose 93 (70-100) mg/dL Lactate 1.3 (0.7-2.1) mmol/L Calcium 9.3 (8.4-10.2) mg/dL Total Bilirubin 0.5 (0.2-1.3) mg/dL AST 24 (14-36) IU/L ALT 15 (<35) IU/L Alkaline Phosphatase 92 (38-126) U/L Total Protein 7.2 (6.3-8.2) g/dL Albumin 4.4 (3.5-5.0) g/dL Globulin 2.8 (1.7-4.1) g/dL Albumin/Globulin Ratio 1.6 (1.0-2.8) Amylase 74 (30-110) U/L Lipase 56 (23-300) U/L Serum , Qual (Negative) 09/30/20 Range/Units 11:55 WBC (4.5-11.0) X10^3/uL RBC (4.0-5.2) X10^6/uL Hgb (12.0-16.0) g/dL Hct (36-46) % MCV (80-100) fL MCH (26-34) PG MCHC (30-36) % RDW (11.6-14.8) % Plt Count (150-400) X10^3/uL Neut % (Auto) (50-75) % Lymph % (Auto) (25-40) % [place] % (Auto) (3-14) % Eos % (Auto) (2-4) % Baso % (Auto) (0-2) % Neut # (Auto) (0369-7920) /uL Lymph # (Auto) (3060-2285) /uL [place] # (Auto) (0-900) /uL Eos # (Auto) (0-450) /uL Baso # (Auto) (0-100) /uL Sodium (137-145) mmol/L Potassium (3.4-5.1) mmol/L Chloride (98-107) mmol/L Carbon Dioxide (22-32) mmol/L BUN (7-17) mg/dL Creatinine (0.52-1.04) mg/dL Estimated GFR (>60) mL/min BUN/Creatinine Ratio (6-22) Glucose (70-100) mg/dL Lactate (0.7-2.1) mmol/L Calcium (8.4-10.2) mg/dL Total Bilirubin (0.2-1.3) mg/dL AST (14-36) IU/L ALT (<35) IU/L Alkaline Phosphatase (38-126) U/L Total Protein (6.3-8.2) g/dL Albumin (3.5-5.0) g/dL Globulin (1.7-4.1) g/dL Albumin/Globulin Ratio (1.0-2.8) Amylase (30-110) U/L Lipase (23-300) U/L Serum , Qual Negative (Negative) Point of care testing: Urine Dip Bedside Urine Glucose Negative Bedside Urine Bilirubin - Negative Bedside Urine Ketone - Negative Urine Specific [place] 1.015 Bedside Urine Occult Blood - Negative Bedside Urine pH 6.5 Bedside Urine Protein - Negative Bedside Urine Urobilinogen - Negative Bedside Urine Nitrite - Negative Bedside Urine Leukocytes - Negative Esterase Imaging Data CT scan - abdomen/pelvis: Radiologist's Impression: [facility] [address] [place] [address] [id number] Scan ReportSigned Patient: Sakshi Bell [facility]#: [id number]: 1980Acct:[id number]/Sex: 40 / FDate of Service: 09/30/20Loc: EDAccession Number: [id number] Procedure: CT abdomen pelvis w con Ordering Provider: Sandra Rivas [facility] [place]- PROCEDURE: CT ABDOMEN PELVIS W CON INDICATIONS: llq pain TECHNIQUE: After the administration of intravenous contrast, 5 mm thick sections acquired from the diaphragm to the symphysis. 5 mm coronal and sagittal reformats were acquired. For radiation dose reduction, the following was used: automated exposure control, adjustment of mA and/or kV according to patient size. COMPARISON: [facility], , CT ABDOMEN/PELVIS WITH CONTRAST, 08/25/2017, 11:41. [facility], , CT ABDOMEN/PELVIS WITH CONTRAST, 03/14/2016, 14:26. [facility], CT, CT ABDOMEN PELVIS W CON, 05/04/2020, 12:27. FINDINGS: Image quality: Excellent. ABDOMEN: Lung bases: Lung bases are clear. Heart size is normal. Solid organs: Liver is normal in size and enhancement. Gallbladder wall is not thickened. Biliary system is non dilated. Pancreas enhances normally. Spleen is normal in size and enhancement. No adrenal nodules. Kidneys demonstrate normal size and enhancement, without hydronephrosis. Peritoneum and bowel: In this patient with this given history, scrutiny is given to the sigmoid colon. There is minimal sigmoid diverticulosis, without findings of active diverticulitis. No significant left lower quadrant inflammatory changes are seen. Bowel loops demonstrate normal wall thickness and caliber. The previously seen diverticulitis of the transverse colon has resolved. No free fluid or air. A moderate amount of stool is seen within the colon. Nodes and vessels: No retroperitoneal or mesenteric adenopathy by size criteria. Aorta and inferior vena cava are normal in size. Miscellaneous: No ventral hernias. PELVIS: Genitourinary: Bladder wall thickness is normal, ports decompressed state. An IUD is seen at its expected location. The uterus appears normal for age. No adnexal masses are seen. Miscellaneous: No inguinal hernias or adenopathy. Bones: No suspicious bony lesions. No vertebral body compression fractures. IMPRESSION: No imaging explanation is found for this patient's presenting history of left lower quadrant pain. Minimal sigmoid diverticulosis is seen, without findings of active diverticulitis. Interval resolution of the previously seen diverticulitis of the transverse colon. There is a moderate amount of stool seen within the colon. Please correlate with an underlying history of constipation. Incidental note is made of: IUD Dictated by: Jesus Yousif M.D. on 09/30/2020 at 12:26 Approved by: Jesus Yousif M.D. on 09/30/2020 at 12:29 [facility] Narrative Medical decision making narrative: The patient is a 40-year-old female who presents with a chief complaint of left lower quadrant pain and concern for recurrence diverticulitis. Overall her lab work was reassuring with no leukocytosis or elevated lactate. However given the patient's pain to palpation and history, I did obtain a CT abdomen pelvis to evaluate for diverticulitis. This resulted with no acute findings other than constipation. Additionally there are no adnexal masses noted. The patient felt much improved after pain and nausea medications. Given the possibility of pelvic etiology, we did do a pelvic exam to help rule out pelvic inflammatory disease. Given that the patient does not have any cervical motion tenderness, I do not believe that this is the case. Wet prep shows no acute findings. Given her CT, we did discuss at length constipation care including ensuring hydration, MiraLax etcetera. Encouraged follow-up with primary care provider in the next few days. Discussed at length return precautions the emergency department cleaning inability keep down fluids, abdominal pain with fever etcetera. Patient has no questions or concerns upon discharge and states understanding return precautions as well as follow-up care. <Claudia Ribera MD - Last Filed: 09/30/20 17:09> Lab Data Labs: Lab Results 09/30/20 09/30/20 09/30/20 Range/Units 11:55 11:55 11:55 WBC 6.8 (4.5-11.0) X10^3/uL RBC 4.10 (4.0-5.2) X10^6/uL Hgb 13.2 (12.0-16.0) g/dL Hct 39.4 (36-46) % MCV 96.2 (80-100) fL MCH 32.1 (26-34) PG MCHC 33.4 (30-36) % RDW 12.0 (11.6-14.8) % Plt Count 284 (150-400) X10^3/uL Neut % (Auto) 63.1 (50-75) % Lymph % (Auto) 27.8 (25-40) % [place] % (Auto) 7.0 (3-14) % Eos % (Auto) 1.5 L (2-4) % Baso % (Auto) 0.6 (0-2) % Neut # (Auto) 4300 (7479-2277) /uL Lymph # (Auto) 1900 (2369-4788) /uL [place] # (Auto) 500 (0-900) /uL Eos # (Auto) 100 (0-450) /uL Baso # (Auto) 0 (0-100) /uL Sodium 138 (137-145) mmol/L Potassium 4.2 (3.4-5.1) mmol/L Chloride 106 (98-107) mmol/L Carbon Dioxide 26 (22-32) mmol/L BUN 12 (7-17) mg/dL Creatinine 0.62 (0.52-1.04) mg/dL Estimated GFR > 60.0 (>60) mL/min BUN/Creatinine Ratio 19.4 (6-22) Glucose 93 (70-100) mg/dL Lactate 1.3 (0.7-2.1) mmol/L Calcium 9.3 (8.4-10.2) mg/dL Total Bilirubin 0.5 (0.2-1.3) mg/dL AST 24 (14-36) IU/L ALT 15 (<35) IU/L Alkaline Phosphatase 92 (38-126) U/L Total Protein 7.2 (6.3-8.2) g/dL Albumin 4.4 (3.5-5.0) g/dL Globulin 2.8 (1.7-4.1) g/dL Albumin/Globulin Ratio 1.6 (1.0-2.8) Amylase 74 (30-110) U/L Lipase 56 (23-300) U/L Serum , Qual (Negative) 09/30/20 Range/Units 11:55 WBC (4.5-11.0) X10^3/uL RBC (4.0-5.2) X10^6/uL Hgb (12.0-16.0) g/dL Hct (36-46) % MCV (80-100) fL MCH (26-34) PG MCHC (30-36) % RDW (11.6-14.8) % Plt Count (150-400) X10^3/uL Neut % (Auto) (50-75) % Lymph % (Auto) (25-40) % [place] % (Auto) (3-14) % Eos % (Auto) (2-4) % Baso % (Auto) (0-2) % Neut # (Auto) (3261-4855) /uL Lymph # (Auto) (7371-4634) /uL [place] # (Auto) (0-900) /uL Eos # (Auto) (0-450) /uL Baso # (Auto) (0-100) /uL Sodium (137-145) mmol/L Potassium (3.4-5.1) mmol/L Chloride (98-107) mmol/L Carbon Dioxide (22-32) mmol/L BUN (7-17) mg/dL Creatinine (0.52-1.04) mg/dL Estimated GFR (>60) mL/min BUN/Creatinine Ratio (6-22) Glucose (70-100) mg/dL Lactate (0.7-2.1) mmol/L Calcium (8.4-10.2) mg/dL Total Bilirubin (0.2-1.3) mg/dL AST (14-36) IU/L ALT (<35) IU/L Alkaline Phosphatase (38-126) U/L Total Protein (6.3-8.2) g/dL Albumin (3.5-5.0) g/dL Globulin (1.7-4.1) g/dL Albumin/Globulin Ratio (1.0-2.8) Amylase (30-110) U/L Lipase (23-300) U/L Serum , Qual Negative (Negative) Point of care testing: Urine Dip Bedside Urine Glucose Negative Bedside Urine Bilirubin - Negative Bedside Urine Ketone - Negative Urine Specific [place] 1.015 Bedside Urine Occult Blood - Negative Bedside Urine pH 6.5 Bedside Urine Protein - Negative Bedside Urine Urobilinogen - Negative Bedside Urine Nitrite - Negative Bedside Urine Leukocytes - Negative Esterase Discharge Plan Departure Patient Disposition: Home Clinical Impression: Abdominal pain Qualifiers: Abdominal location: generalized Qualified Code(s): R10.84 - Generalized abdominal pain Constipation Qualifiers: Constipation type: unspecified constipation type Qualified Code(s): K59.00 - Constipation, unspecified Instructions: Constipation (Alternative Therapy), DI for Abdominal Pain-Adult, DI for Constipation Activity Restrictions/Additional Instructions: Thank you for trusting us with your care today. I sent a prescription of nausea medications to [facility] in [place]. Please be aware that this can be constipating As discussed, your imaging lab work and evaluation of overall come back very reassuring. The cultures will take a while to come back. We will call you if anything is concerning on the. There are signs of constipation on your scan however, so let us treat for this. Be sure that you are hydrated, eating enough fiber etcetera As discussed, please follow-up with primary care provider in the next few days. As discussed, please come back to the emergency department for any acute concerns such as abdominal pain with fever etcetera. Prescriptions: New ondansetron 4 mg tablet,disintegrating 4 mg PO Q6H PRN (Reason: nausea and vomiting) Qty: 14 RF: 0 No Action levonorgestrel [Mirena] 20 mcg/24 hr (5 years) Intrauterine Device 1 device Intrauterine DIRECTED RF: 0 ibuprofen 800 mg Tablet 800 mg PO TID PRN (Reason: Pain) RF: 0 oxycodone-acetaminophen [Percocet] 5-325 mg Tablet 2 tab PO Q4-6H PRN (Reason: Pain) RF: 0 ondansetron 4 mg tablet,disintegrating 4 mg PO Q6H PRN (Reason: nausea and vomiting) Qty: 10 RF: 0 Referrals: [facility] [Provider Group] <Claudia Ribera MD - Last Filed: 09/30/20 17:09> [facility] Attestation: I was immediately available in the department for consultation throughout this patient's visit. I agree with documentation as above. Claudia Ribera MD
[2020-09-30] MEDS: KETOROLAC 60 MG/2 ML VIAL 30 MG IV (11:56)
[2020-09-30] MEDS: SODIUM CHLORIDE 0.9% 1,000 ML 1000 ML IV (11:56)
[2020-09-30] MEDS: ONDANSETRON 4 MG/2 ML INJ IV (11:56)
[2020-09-30 12:01] LABS: Add Manual Diff / Slide Review NO; Basophils Absolute Auto 0 /uL (0-100); Basophils Percent Auto 0.6 % (0-2); Eosinophils Absolute Auto 100 /uL (0-450); Eosinophils Percent Auto 1.5 % (2-4); Hematocrit 39.4 % (36-46); Hemoglobin 13.2 g/dL (12.0-16.0); Lymphocytes Absolute Auto 1900 /uL (1100-4500); Lymphocytes Percent Auto 27.8 % (25-40); Mean Corpuscular HGB Conc 33.4 % (30-36); Mean Corpuscular Hemoglobin 32.1 PG (26-34); Mean Corpuscular Volume 96.2 fL (80-100); Monocytes Absolute Auto 500 /uL (0-900); Neutrophils Absolute Auto 4300 /uL (1500-7000); Neutrophils Percent Auto 63.1 % (50-75); Platelet Count 284 X10^3/uL (150-400); White Blood Cell Count 6.8 X10^3/uL (4.5-11.0)
[2020-09-30 12:18] LABS: Lactate (Lactic Acid) 1.3 mmol/L (0.7-2.1)
[2020-09-30 12:19] LABS: Alanine Aminotransferase 15 IU/L (<35); Albumin 4.4 g/dL (3.5-5.0); Albumin Globulin Ratio 1.6 (1.0-2.8); Alkaline Phosphatase 92 U/L (38-126); Amylase 74 U/L (30-110); Aspartate Aminotransferase 24 IU/L (14-36); BUN Creatinine Ratio 19.4 (6-22); Bilirubin Total 0.5 mg/dL (0.2-1.3); Blood Urea Nitrogen 12 mg/dL (7-17); Calcium 9.3 mg/dL (8.4-10.2); Carbon Dioxide 26 mmol/L (22-32); Chloride 106 mmol/L (98-107); Estimated Glomerular Filt Rate > 60.0 mL/min (>60); Globulin 2.8 g/dL (1.7-4.1); Glucose 93 mg/dL (70-100); HEMOLYSIS 27 (0-50); Lipase 56 U/L (23-300); Potassium 4.2 mmol/L (3.4-5.1); Sodium 138 mmol/L (137-145); Total Protein 7.2 g/dL (6.3-8.2)
[2020-09-30] MEDS: HYDROMORPHONE 0.5 MG INJ (12:24)
--- NOTE | 2020-09-30 12:32 | DI.CT.S_ITS ---
PROCEDURE: CT ABDOMEN PELVIS W CON INDICATIONS: llq pain TECHNIQUE: After the administration of intravenous contrast, 5 mm thick sections acquired from the diaphragm to the symphysis. 5 mm coronal and sagittal reformats were acquired. For radiation dose reduction, the following was used: automated exposure control, adjustment of mA and/or kV according to patient size. COMPARISON: [facility], , CT ABDOMEN/PELVIS WITH CONTRAST, 08/25/2017, 11:41. [facility], [place], CT ABDOMEN/PELVIS WITH CONTRAST, 03/14/2016, 14:26. [facility], CT, CT ABDOMEN PELVIS W CON, 05/04/2020, 12:27. FINDINGS: Image quality: Excellent. ABDOMEN: Lung bases: Lung bases are clear. Heart size is normal. Solid organs: Liver is normal in size and enhancement. Gallbladder wall is not thickened. Biliary system is non dilated. Pancreas enhances normally. Spleen is normal in size and enhancement. No adrenal nodules. Kidneys demonstrate normal size and enhancement, without hydronephrosis. Peritoneum and bowel: In this patient with this given history, scrutiny is given to the sigmoid colon. There is minimal sigmoid diverticulosis, without findings of active diverticulitis. No significant left lower quadrant inflammatory changes are seen. Bowel loops demonstrate normal wall thickness and caliber. The previously seen diverticulitis of the transverse colon has resolved. No free fluid or air. A moderate amount of stool is seen within the colon. Nodes and vessels: No retroperitoneal or mesenteric adenopathy by size criteria. Aorta and inferior vena cava are normal in size. Miscellaneous: No ventral hernias. PELVIS: Genitourinary: Bladder wall thickness is normal, ports decompressed state. An IUD is seen at its expected location. The uterus appears normal for age. No adnexal masses are seen. Miscellaneous: No inguinal hernias or adenopathy. Bones: No suspicious bony lesions. No vertebral body compression fractures. IMPRESSION: No imaging explanation is found for this patient's presenting history of left lower quadrant pain. Minimal sigmoid diverticulosis is seen, without findings of active diverticulitis. Interval resolution of the previously seen diverticulitis of the transverse colon. There is a moderate amount of stool seen within the colon. Please correlate with an underlying history of constipation. Incidental note is made of: IUD Dictated by: Jesus Yousif M.D. on 09/30/2020 at 12:26 Approved by: Jesus Yousif M.D. on 09/30/2020 at 12:29
[2020-09-30 12:50] LABS: Pregnancy Test Serum,Qual Negative (Negative)
[2020-09-30] MEDS: MAGNESIUM CITRATE 300 ML SOLUTION PO (15:46)
== END 2020-09-30 16:05 | disposition home or self-care (01) ==
PROVIDERS: Emergency Provider Nurse Practitioner Family; Family Provider General Practice
DX: R10.84 Generalized abdominal pain (principal); K59.00 Constipation, unspecified; R11.0 Nausea
CPT/HCPCS: 36415; 74177; 80053; 81003; 82150; 83605; 83690; 84703; 85025; 87070; 87077; 87147; 87210; 96361; 96374; 96375; 99281; 99284; J1170; J1885; J2405; Q9967

== ENCOUNTER → 2023-12-25 07:18 | Outpatient (CLI) | payer OTHER, SELFPAY ==
--- NOTE | 2023-12-25 07:27 | DI.RAD.S_ITS ---
PROCEDURE: XR RIBS BI 3V INDICATIONS: Cracked rib TECHNIQUE: 4 views of the ribs were acquired. COMPARISON: [facility], CT, CT ABDOMEN PELVIS W CON, 09/30/2020, 13:02. FINDINGS: Surgical changes and devices: None. Bones and chest wall: No fractures or dislocations. No suspicious bony lesions. Overlying soft tissues appear unremarkable. Lungs and pleura: The visualized lung appears clear. No pleural effusions or pneumothorax are visible. IMPRESSION: No displaced rib fracture. No acute cardiopulmonary abnormality. Dictated by: Esteban Roland M.D. on 12/25/2023 at 9:49 Approved by: Esteban Roland M.D. on 12/25/2023 at 9:53
[2023-12-25 09:30] LABS: Alanine Aminotransferase 18 IU/L (<35); Albumin Globulin Ratio 1.5 (1.0-2.8); Alkaline Phosphatase 98 U/L (38-126); Aspartate Aminotransferase 20 IU/L (14-36); Bilirubin Total 0.6 mg/dL (0.2-1.3); Bilirubin Unconjugated 0.5 mg/dL (0.0-1.1); Globulin 2.7 g/dL (1.7-4.1); HEMOLYSIS < 15 (0-50); Total Protein 6.7 g/dL (6.3-8.2)
[2023-12-25 09:43] LABS: Vitamin D 25 Hydroxy (D3) 17.5 ng/mL (30.0-100.0)
== END ==
PROVIDERS: Family Provider General Practice; Referring Provider Chiropractor; Visit Provider Chiropractor
DX: S22.39XB Fracture of one rib, unspecified side, initial encounter for open fracture (principal); R74.01 Elevation of levels of liver transaminase levels; E55.9 Vitamin D deficiency, unspecified
CPT/HCPCS: 36415; 71110; 80076; 82306

== ENCOUNTER → 2024-01-21 09:18 | Outpatient (CLI) | payer OTHER, SELFPAY ==
--- NOTE | 2024-01-21 09:19 | DI.MG.S_ITS ---
UNILATERAL LEFT DIGITAL DIAGNOSTIC MAMMOGRAM 3D/2D WITH ADDITIONAL VIEWS: 01/21/2024 CLINICAL: Additional evaluation requested from prior study. Comparison is made to exam dated: 12/26/2023 mammogram - Outside facility. The left breast is heterogeneously dense, which may obscure small masses (category c / 51-75% glandular tissue). There is a 1.5 cm area of grouped coarse heterogeneous calcifications in the left breast at 2 o'clock middle depth. These are seen in additional views. Additionally, there is a 6 mm oval equal density focal asymmetry with a circumscribed margin in the left breast at 2 o'clock posterior depth. This finding is adjacent to the calcifications and may or may not be a part of the same process. There also is an oval mass with a circumscribed margin in the left breast at 8 o'clock anterior depth. This correlates as an incidental finding. No other significant masses or calcifications are seen in the breast. IMPRESSION: INCOMPLETE: NEEDS ADDITIONAL IMAGING EVALUATION The 1.5 cm area of grouped coarse heterogeneous calcifications in the left breast at 2 o'clock middle depth are indeterminate. An ultrasound is recommended. The 6 mm oval equal density focal asymmetry in the left breast at 2 o'clock posterior depth is indeterminate. An ultrasound is recommended. The oval mass in the left breast at 8 o'clock anterior depth is indeterminate. An ultrasound is recommended. Based on the Tyrer Cuzick model (a risk assessment model) the patient's lifetime risk is 15.0% and her 10 year risk is 2.1%. According to the ACR, ACS, and NCCN guidelines, an annual breast MRI exam along with mammogram is recommended if the patient's lifetime risk is 20% or greater. This exam was interpreted at Station ID: [id number]. NOTE: For mammograms, a report in lay terms will be sent to the patient. Approximately 15% of breast malignancies will not be visualized mammographically. In the management of a palpable breast mass, a negative mammogram must not discourage biopsy of a clinically suspicious lesion. Electronically Signed By: Roman Quijano M.D. ar/:01/21/2024 11:52:39 ACR BI-RADS Category 0: Incomplete 3340F
--- NOTE | 2024-01-21 09:20 | DI.US.S_ITS ---
LIMITED ULTRASOUND OF LEFT BREAST AND AXILLA: 01/21/2024 CLINICAL: Patient returns today to evaluate a focal asymmetry in the left breast. Comparison is made to exams dated: 01/21/2024 mammogram - [facility] and 12/26/2023 mammogram - Outside facility. Real-time and Doppler ultrasound of the left breast 2 o'clock, 8 o'clock, and axilla regions were performed. Mazariegos scale images of the real-time examination were reviewed. There is a 0.6 cm x 0.5 cm x 0.4 cm oval mass with an indistinct and circumscribed margin in the left breast at 2 o'clock middle depth 4 cm from the nipple. This oval mass is hypoechoic. This correlates with mammography findings. Color flow imaging demonstrates that there is no increase in vascularity. This lesion corresponds to the oval focal asymmetry on mammography that is in close proximity to the overlying suspicious calcifications, which are not well seen sonographically. There also is a benign 1.4 cm x 1.4 cm x 0.8 cm oval cyst with a smooth internal wall in the left breast at 7 o'clock anterior depth 4 cm from the nipple. This oval cyst is anechoic with posterior acoustic enhancement. This correlates with mammography findings. No significant abnormalities were seen sonographically in the left axilla. IMPRESSION: SUSPICIOUS OF MALIGNANCY The 0.6 cm x 0.5 cm x 0.4 cm oval mass in the left breast at 2 o'clock middle depth has a differential diagnosis of a complicated cyst or a solid mass and is suspicious of malignancy. An ultrasound guided biopsy is recommended. If the results of this biopsy are negative for malignancy, then recommend stereotactic biopsy targeting the adjacent calcifications. The findings and recommendations were discussed with the patient by the onsite radiologist, Dr. Roland, at the time of the exam. No significant findings in the left axilla. The 1.4 cm x 1.4 cm x 0.8 cm oval cyst in the left breast at 7 o'clock anterior depth is consistent with a simple cyst and is benign. This exam was interpreted at Station ID: [id number]. Electronically Signed By: Roman Quijano M.D. ar/:01/21/2024 11:50:19 letter sent: Biopsy Required Ultrasound BI-RADS: 4 Suspicious for malignancy
== END ==
LOC: MAMMO 09:19
PROVIDERS: Family Provider General Practice; Referring Provider Student in an Organized Health Care Education/Training Program; Visit Provider Student in an Organized Health Care Education/Training Program
DX: R92.8 Other abnormal and inconclusive findings on diagnostic imaging of breast (principal); N63.22 Unspecified lump in the left breast, upper inner quadrant; R92.332 Mammographic heterogeneous density, left breast
CPT/HCPCS: 76642; 77065; G0279

== ENCOUNTER → 2024-02-05 07:29 | Outpatient (CLI) | payer OTHER, SELFPAY ==
--- NOTE | 2024-02-05 | PATH_ITS ---
[facility] Accession Number: [id number] No. of containers..01 Tissue . 01 Material submitted: . breast - LEFT BREAST 2:30 4 CMFN . 01 Diagnosis: A. LEFT BREAST, 2:30 O'CLOCK, 4 CM FROM THE NIPPLE, BIOPSY: Atypical ductal hyperplasia (ADH), severe. Microcalcifications in assocation with ADH and benign breast tissue. MRV 02/11/2024 1055 Local . 01 Electronically signed: . Daly Aguilar MD, Pathologist NPI- [id number] . 01 Gross description: . Received is one formalin-filled container labeled with the patient's name designated left breast 2:30 4 cm FN. The specimen is received with plastic filter in container and sample loose in container, and consists of multiple fragments of tissue and clotted blood which measure 2.0 x 2.0 x 0.3 cm in aggregate. The specimen is filtered, wrapped, and entirely submitted in cassette A1. . Possible collection date and time per requisition 02/05/2024 at 0920 hours. Total fixation time approximately 17 hours. ([id number]) /MARLEN 02/06/2024 0505 Local . 01 Microscopic: . The biopsy consists predominantly of blood. Few fragments ( 3) contains an atypical intraductal proliferation consisting of dilated glandular spaces, with mucin production, lined partially by mildly to moderately atypical cells, with architectual abnormality consisting of bridging and arcades, without full expansion of spaces. These areas measure about 1-4 mm. Microcalcifications is seen in association with the atypical intraductal proliferation, and with benign breast tissue in the background, which also includes columnar cell change/columnar cell hyperplasia. No evidence of invasive malignancy is seen. . A panel of immunohistochemical stains is performed on block A1 in order to evaluate the atypical intraductal proliferation. There is complete loss of CK5/6, and diffuse overexpression of ER, with appropriately stainign controls, in support of the diagnosis. . * This test was developed and its performance characteristics determined by [facility]. It has not been cleared or approved by the U.S. Food and Drug Administration. The FDA has determined that such clearance or approval is not necessary. This test is used for clinical purposes. It should not be regarded as investigational or for research. . 01 Pathologist provided ICD-10: N60.81 . 01 CPT . 187683, E53114, Q33759 Performed at: [address] [facility], [place], [place] [id number] MD Rojelio Jiménez MD Phone: [phone]
--- NOTE | 2024-02-05 07:30 | DI.US.S_ITS ---
ULTRASOUND GUIDED BIOPSY LEFT BREAST USING VACUUM DEVICE WITH MARKING DEVICE INSERTED AND POST DIGITAL MAMMOGRAPHIC IMAGIN02/05/2024 CLINICAL: Left breast mass. Follow up from addtional views. PATIENT CONSENT: Risks (minor bleeding, infection, vasovagal reaction and repeat procedure), benefits and alternatives were explained to the patient and written informed consent was obtained. Correlation is made to exams dated: 01/21/2024 ultrasound, 01/21/2024 mammogram - [facility], and 12/26/2023 mammogram - Outside facility. An ultrasound guided biopsy using real-time ultrasound was performed for the 0.6 cm x 0.5 cm x 0.4 cm mass located in the left breast at 2 o'clock middle depth 4 cm from the nipple. This was described on the previous ultrasound report. The skin was prepped in the usual manner. Local anesthetic was administered to the access site. A skin kenneth was made in the breast. The abnormality was approached from the lateral aspect. A 12 gauge biopsy needle was placed adjacent to the abnormality under ultrasound guidance. Once the needle was documented to be in the correct location, five specimens were obtained using a vacuum assisted device. A clip was inserted into the biopsy cavity. A sterile dressing was applied to the access site. Post procedure digital mammographic imaging demonstrates the location device at the targeted area. The specimens were sent to the laboratory for pathological analysis. IMPRESSION: ULTRASOUND GUIDED BIOPSY HIGH RISK BENIGN Ultrasound guided biopsy of the 0.6 cm x 0.5 cm x 0.4 cm mass in the left breast at 2 o'clock middle depth 4 cm from the nipple was successful with no apparent post procedure complications. Pathology indicates high risk benign atypical ductal hyperplasia (ADH) with micro-calcifications present. Pathology results are concordant with imaging findings. A surgical excision is recommended. This exam was interpreted at Station ID: [id number]. carloz Soto M.D., M.D./:02/11/2024 12:59:59
--- NOTE | 2024-02-05 07:31 | DI.MG.S_ITS ---
UNILATERAL LEFT DIGITAL DIAGNOSTIC MAMMOGRAM 3D/2D - LEFT BREAST POST-PROCEDURE IMAGING FOR MARKER PLACEMENT: 02/05/2024 CLINICAL: Post left breast ultrasound biopsy, clip placement imaging. Comparison is made to exams dated: 01/21/2024 mammogram - [facility], 12/26/2023 mammogram - Outside facility, and 01/21/2024 ultrasound - [facility]. The left breast is heterogeneously dense, which may obscure small masses (category c / 51-75% glandular tissue). There is a marker clip in the appropriate position in the left breast at 2 o'clock middle depth 4 cm from the nipple. This marker clip placement is at the biopsy site. IMPRESSION: POST PROCEDURE MAMMOGRAM FOR MARKER PLACEMENT There was a successful marker clip placement in the left breast middle depth. Based on the Tyrer Cuzick model (a risk assessment model) the patient's lifetime risk is 15.0% and her 10 year risk is 2.1%. According to the ACR, ACS, and NCCN guidelines, an annual breast MRI exam along with mammogram is recommended if the patient's lifetime risk is 20% or greater. This exam was interpreted at Station ID: [id number]. NOTE: For mammograms, a report in lay terms will be sent to the patient. Approximately 15% of breast malignancies will not be visualized mammographically. In the management of a palpable breast mass, a negative mammogram must not discourage biopsy of a clinically suspicious lesion. Electronically Signed By: Roman Quijano M.D. ar/:02/05/2024 19:50:54 ACR BI-RADS Category Post-procedure mammogram for marker placement
== END ==
PROVIDERS: Family Provider General Practice; Referring Provider Family Medicine; Visit Provider Family Medicine
DX: N60.92 Unspecified benign mammary dysplasia of left breast (principal); R92.332 Mammographic heterogeneous density, left breast
CPT/HCPCS: 19083; 77065

== ENCOUNTER → 2024-02-24 14:12 | Outpatient (CLI) | payer OTHER, SELFPAY ==
--- NOTE | 2024-02-24 14:15 | DI.RAD.S_ITS ---
PROCEDURE: XR CHEST 2V INDICATIONS: SHORTNESS OF BREATH TECHNIQUE: 2 views of the chest were acquired. COMPARISON: None. FINDINGS: Surgical changes and devices: None. Lungs and pleura: Lungs are clear. No pleural effusions or pneumothorax. Mediastinum: Mediastinal contours are normal. Heart size is normal. Bones and chest wall: No suspicious bony abnormalities. Soft tissues appear unremarkable. IMPRESSION: No acute cardiopulmonary abnormality is seen. Dictated by: Sumit Richmond M.D. on 02/24/2024 at 15:51 Approved by: Sumit Richmond M.D. on 02/24/2024 at 15:51
== END ==
PROVIDERS: Family Provider General Practice; Referring Provider Chiropractor; Visit Provider Chiropractor
DX: R06.02 Shortness of breath (principal)
CPT/HCPCS: 71046; 94060

== ENCOUNTER 2024-08-25 12:06 | Day surgery (SDC) | payer OTHER, SELFPAY ==
[2024-08-24 09:06] VITALS: BMI 24.3
--- NOTE | 2024-08-25 | DI.MG.S_ITS ---
WIRE LOCALIZATION LEFT BREAST: 08/25/2024 CLINICAL: Left breast wire localization. Correlation is made to exams dated: 02/05/2024 mammogram, 01/21/2024 mammogram - [facility], and 12/26/2023 mammogram - Outside facility. A wire localization was performed for the marker clip located in the left breast at 2 o'clock middle depth. The skin was prepped in the usual manner. A wire was inserted into the targeted area. IMPRESSION: WIRE LOCALIZATION Wire localization for the marker clip in the left breast at 2 o'clock middle depth was successful. This exam was interpreted at Station ID: [id number]. Jorge A Kiser M.D. crm/:09/02/2024 11:05:08
--- NOTE | 2024-08-25 | PATH_ITS ---
[facility] Accession Number: [id number] No. of containers..01 Tissue . 01 Material submitted: . breast - LEFT BREAST TISSUE . 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 No invasive tumor identified. Please see case summary below. . CASE SUMMARY . Specimen Procedure: Excision Specimen laterality: Left. . Tumor Tumor site: Upper outer quadrant. Clock position: 2:30 Distance from nipple: 4 cm. Histologic type: Ductal carcinoma in situ. Size of DCIS: DCIS is present as three small discontinuous foci in tissue slices 13 (4 mm), 14 (2 mm), and 15 (3 mm). Architectural patterns: Micropapillary. Nuclear grade: Grade 1 (low). Necrosis: Not identified. Microcalcifications: Present in DCIS. . Margins (Inked intra-operatively; orientation to be provided by surgeon.) Margin status: DCIS close to orange-inked (slices 13 and 15), green-inked (slice 13), and black-inked (slice 14) margins. . Distance from DCIS to closest margin: Less than 1 mm from orange and black ink. . [place]: Less than 1 mm (slice 15); 1 mm (slice 13). Black: Less than 1 mm from a disrupted margin (slice 14). Green ink: 1 mm (slice 13). Yellow ink: 5 mm. Red ink: Greater than 10 mm. Blue ink: Greater than 10 mm. . Regional lymph nodes: Not applicable. One benign intraparenchymal lymph node present. . Distant site involved: Not applicable. . TNM: pTis(DCIS): Ductal carcinoma in situ. pN not assigned (cannot be determined based on available pathological information). pM: Not applicable. . Additional findings: Fibrocystic change consisting of usual ductal hyperplasia, cystic dilatation of terminal ductules, apocrine metaplasia, stromal fibrosis, and sclerosing adenosis. Calcifications present in regions of ductal carcinoma in situ and in benign ductal epithelium. Changes consistent with previous instrumentation present. Focal papillomatosis, flat epithelial atypia, columnar cell change with and without hyperplasia, and usual ductal hyperplasia are present. Changes consistent with previous instrumentation present. Vision-shaped biopsy clip in slice 16. Guidewire present. . . . . . . . . [facility] 09/03/2024 1236 Local . 01 Comment: This case was also reviewed by Dr. Adrianne Lindsey, who agrees with the interpretation. . This patient's prior left breast biopsy ([id number]; 02/05/24) was reviewed and the tumor in this excision specimen appears morphologically similar to the tumor identified in the previous biopsy. . 01 Electronically signed: . Shayy Pack MD, Pathologist NPI- [id number] . 01 Gross description: . Received: In formalin with two patient identifiers and left breast tissue. Specimen: A previously inked lumpectomy: Weight: 12 grams. Measurement: 5.9 cm from red to blue, 2.5 cm from green to black, 1.5 cm yellow to orange. Skin ellipse: Absent. Wire: Present, penetrating at the red and green junction and terminates at the blue and black junction. Margins: Inked by the surgeon with no color designations provided; however, per the surgeon, the specimen is inked per the usual margin marker lateral method, but in the absence of confirmation, color description will be used. Red is opposite blue, green is opposite black, and yellow is opposite orange. The inking is reinforced at the bench. Sliced: From red to blue into 17 slices. Lesion: No distinct lesions are identified. Biopsy site: A Vision-shaped biopsy clip is found within slice 16, adjacent to orange and black-inked margins. Associated possible biopsy site changes consistent with arboleda fibrous tissue are identified within slices 7-17 and grossly involve the yellow, orange, black, green, and blue margins. The remaining cut surfaces are yellow and lobulated with minimal fibrous tissue and no lesions identified. Fixation: The specimen was removed on 08/25/2024 at 1633. Time in formalin not provided. Cold ischemic time cannot be calculated. Total fixation time is approximately 48 hours. The specimen is submitted entirely as follows: A1: Slice 1, red margin perpendicular. A2-A16: Single sequential slices 2-16. A17: Slice 17, blue margin perpendicular. (AG:[id number]) /MRV 08/27/2024 1853 Local . 01 Microscopic: . An immunohistochemistry panel is performed to further evaluate the cells of interest. The control stains show appropriate reactivity. . RESULTS: Blocks A13, 14, and 15 (small, discontinuous foci): ER: Strongly positive in regions of interest. CK/5/6: Diminished / absent in regions of interest. . The strong ER immunostaining and absence of CK5/6 staining supports an interpretation of ductal carcinoma in situ at these foci. . . * This test was developed and the performance characteristics were validated by [employer]. It has not been cleared or approved by the U.S. Food and Drug Administration. . . . BIOMARKER: . Estrogen Receptor (ER) Status: Positive. Average intensity of staining: Moderate to strong staining (91-100% of nuclei) Primary antibody: SP1 . . TECHNICAL NOTE: The scoring criteria for breast biomarkers by immunohistochemistry is based on the current ASCO/CAP guidelines (Sanchez et al, Arch Pathol Lab Med 2010: 134(6): 907-922 / Tommie FRANKS et al, Arch Pathol Lab Med 2014: 138(2):241-256). Deparaffinized sections of formalin fixed tissue (along with appropriate positive controls) are incubated with the above antibody(s). Using the automated Dorrington stainer, tissue is incubated with the designated antibody* which is then localized by a non-biotin, dual polymer detection system. The external controls are reviewed for appropriate reactivity and found to be adequate. Results on the target cell population are indicated above. These tests have not been validated on decalcified tissue. * This test was developed and its performance characteristics determined by [employer]. It has not been cleared or approved by the U.S. Food and Drug Administration. The FDA has determined that such clearance or approval is not necessary. This test is used for clinical purposes. It should not be regarded as investigational or for research. . 01 Pathologist provided ICD-10: N60.92, D05.10 . 01 CPT . 198510, 516500, C99247, Z90709 Specimen Comment: A courtesy copy of this report has been sent to [phone] Performed at: 01 [facility] [address] [facility], [place], [place] [id number] MD Rojelio Jiménez MD Phone: [phone]
--- NOTE | 2024-08-25 | DI.MG.S_ITS ---
SPECIMEN LEFT BREAST: 08/25/2024 CLINICAL: Speciman. Correlation is made to exams dated: 08/25/2024 localization, 02/05/2024 ultrasound biopsy, 01/21/2024 ultrasound, and 02/05/2024 mammogram [facility]. A specimen was imaged for the previous biopsy site located in the left breast at 2 o'clock middle depth. IMPRESSION: SPECIMEN The imaged specimen includes a biopsy clip and the distal portion of the localization wire. This exam was interpreted at Station ID: [id number]. Jorge A Kiser M.D. crm/:09/02/2024 11:05:32
[2024-08-25 13:09] VITALS: BMI 24.3
[2024-08-25 13:15] VITALS: BP 136/92; PULSE 88; RESP 24; TEMP 36.6; O2SAT 99
[2024-08-25] MEDS: LACTATED RINGERS 1,000 ML 42 ML IV (14:20)
--- NOTE | 2024-08-25 15:03 | PM.PREOP ---
Pre-operative Note COVID-19 COVID-19 status: Not tested Interval Note History & Physical reviewed/Exam performed by Physician: Yes Changes to H&P: No ASA Class (for procedural sedation): II
[2024-08-25] MEDS: CEFAZOLIN 2 GM/100 ML PREMIX 100 ML IV (15:48)
--- NOTE | 2024-08-25 15:56 | SUR.OPER ---
Supine on padded OR bed, head on pillow, arms secured on padded arm boards at <90 degrees abduction, legs uncrossed, safety belt at thigh, tape over blanket over lower legs.
[2024-08-25] MEDS: BUPIVACAINE 0.5% W/ EPI (PF) 30 ML VIAL INJ (16:26)
--- NOTE | 2024-08-25 16:32 | P.OP_ITS ---
Operative Date/Time/Diagnoses Date of procedure: 08/25/24 Time of procedure: 16:33 Pre-op diagnosis: Left breast atypical ductal hyperplasia Post-op diagnosis: same Procedure & Clinicians Procedure: Left breast wire localization lumpectomy Same procedure as scheduled: Yes Surgeon: Fab Bennett Lead Tank Mechanic: Lukas Villa Anesthesia Type: General Operative Notes Procedure in detail: The patient had a wire localization performed at Radiology prior to arrival in the perioperative area. The patient was brought to the operating room, placed on the table in the supine position, general anesthesia was induced. Arms were abducted on arm boards. The left breast was prepped and draped in the usual fashion. A time-out was performed. We made a 5 cm incision just lateral to the wire. We created flaps superior and inferior to the incision and then dissected down to the chest wall keeping the wire within the center portion of specimen. We reached pectoral fascia at the deepest aspect of the dissection. The specimen was excised with the wire intact. The specimen was sent to Radiology for specimen mammogram. We then irrigated the wound cavity with sterile saline. Local anesthetic was injected into the muscle layer of the lumpectomy site. A few bleeders were cauterized. Once the wound cavity was hemostatic we injected some local anesthetic into the dermis and closed the incision in layers using multiple interrupted 3-0 Vicryl dermal sutures followed by a running 4-0 Monocryl subcuticular closure. Radiology called the OR reporting that the clip was visualized within the specimen. Steri-Strips were applied followed by dry gauze and a breast binder. EBL: 10 mL Post-operative Condition: stable Disposition: PACU
[2024-08-25 16:47] VITALS: BMI 24.3
[2024-08-25 16:50] VITALS: BP 117/76; PULSE 97; RESP 17; TEMP 36.5; O2SAT 96
[2024-08-25 16:55] VITALS: BP 113/79; PULSE 99; RESP 12; O2SAT 94
[2024-08-25 17:01] VITALS: BP 122/81; PULSE 84; RESP 12; O2SAT 99
[2024-08-25 17:06] VITALS: BP 116/78; PULSE 76; RESP 12; O2SAT 100
[2024-08-25] MEDS: OXYCODONE IR 5 MG TABLET PO (17:16)
[2024-08-25 17:17] VITALS: BP 111/73; PULSE 76; RESP 12; O2SAT 100
== END 2024-08-25 17:30 | disposition home or self-care (01) ==
PROVIDERS: Family Provider General Practice; Referring Provider Surgery; Visit Provider Surgery
PROC: (CPT 19125; principal; 2024-08-25 15:15)
DX: D05.12 Intraductal carcinoma in situ of left breast (principal); Z17.0 Estrogen receptor positive status [ER+]
CPT/HCPCS: 19125; 19281; 76098; C1819; J0690; J1100; J1885; J2405; J2704; J3010

== ENCOUNTER 2024-09-29 07:14 | Day surgery (SDC) | payer OTHER, SELFPAY ==
[2024-09-24 08:13] VITALS: BMI 24.3
[2024-09-29] VITALS (8 sets, daily range): BP systolic 107–145; BP diastolic 51–89; PULSE 71–102; RESP 13–18; TEMP 36.2–36.6; O2SAT 88–99; BMI 23.8
--- NOTE | 2024-09-29 | PATH_ITS ---
[facility] Accession Number: [id number] No. of containers..01 Tissue . 01 Material submitted: . breast - LEFT BREAST . 01 Clinical history: . LUMPECTOMY CAVITY, SHORT STITCH SUPERIOR LONG STITCH LATERAL . 01 Diagnosis: Breast, left, lumpectomy: - Benign breast tissue, negative for ductal carcinoma in situ or invasive carcinoma. - See comment. -- Comment: There is extensive fat necrosis with giant cell reaction, hemosiderin-laden macrophages and fibroblastic changes. There is columnar cell change, and flat epithelial atypia, with benign fibrocystic changes consists of (cystic changes of terminal ducts, usual ductal hyperplasia, micropapillary usual ductal hyperplasia, sclerosing adenosis, apocrine metaplasia). TXN 10/01/2024 1127 Local . 01 Electronically signed: . Tawfeq MD Jan, Pathologist NPI- [id number] . 01 Gross description: . Received: In formalin with two patient identifiers and left breast lumpectomy cavity. Specimen: An oriented lumpectomy with seroma cavity surface. Weight: 21 grams. Measurement: 5.6 cm superior inferior, 4.7 cm medial to lateral, and 3.5 cm anterior to posterior. Skin ellipse: Absent. Wire: Absent. Margins: Designated by the surgeon with a short suture superior and a long suture lateral per the requisition. The seroma cavity surface if anterior per the sutures. Inked as follows: Anterior seroma cavity surface black, medial posterior half blue, lateral posterior half green. Serially sectioned from superior to inferior into 10 slices. Lesion: No discrete lesions are identified. Other: The cut surfaces are yellow to white fibroadipose tissue with surgical site changes identified adjacent to the black-inked seroma cavity. The remaining cut surfaces are yellow to white fibroadipose tissue with white fibrous tissue occupying approximately 30% of the cut surface. Fixation: The specimen was removed on 09/29/2024, time not provided. Cold ischemic time cannot be calculated. Fixation time is approximately 26 hours. The specimen is submitted entirely as follows: A1-A2: Entire slice 1 perpendicular. A3: Slice 2. A4: Slice 3. A5: Slice 4. A6: Slice 5. A7-A8: Composite slice 6. A9-A10: Composite slice 7. A11-A12: Composite slice 8. A13-A14: Composite slice 9. A15-A17: Entire slice 10 perpendicular. (AG:cmc10 [id number]) /MRV 09/30/2024 1804 Local . 01 Pathologist provided ICD-10: D05.12 . 01 CPT . 637990 Specimen Comment: A courtesy copy of this report has been sent to [phone] Performed at: 01 [facility] [address], [place], [place] [id number] MD Rojelio Jiménez MD Phone: [phone]
[2024-09-29] MEDS: LACTATED RINGERS 1,000 ML 42 ML IV (07:57)
[2024-09-29] MEDS: ACETAMINOPHEN 325 MG TABLET 975 MG PO (07:59)
[2024-09-29] MEDS: SCOPOLAMINE 1 PATCH TOP (08:38)
--- NOTE | 2024-09-29 08:41 | PM.PREOP ---
Pre-operative Note COVID-19 COVID-19 status: Not tested Interval Note History & Physical reviewed/Exam performed by Physician: Yes Changes to H&P: No ASA Class (for procedural sedation): II
--- NOTE | 2024-09-29 09:05 | SUR.OPER ---
Supine on padded OR bed, head on pillow, arms secured on padded arm boards at <90 degrees abduction, legs uncrossed, safety belt at thigh, tape over blanket over lower legs.
[2024-09-29] MEDS: BUPIVACAINE 0.5% (PF) 30 ML VIAL INJ (09:15)
[2024-09-29] MEDS: LIDOCAINE 1% W/EPI 20ML 20 ML INJ (09:16)
--- NOTE | 2024-09-29 10:00 | PM.OP.1 ---
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 Final path came back showing ductal carcinoma in-situ coming to within 1 mm of the lateral and posterior margins. She was consented for re-excision of the left breast lumpectomy cavity. Patient was brought to the operating room, placed on the table in the supine position with the left arm abducted. No antibiotics were indicated. The left breast was prepped and draped in the usual fashion and a time-out was performed. We reexcised the surgical scar. We then reexcised the lumpectomy cavity en bloc. We oriented the specimen with a short stitch at the superior aspect and a long stitch at the lateral aspect. The reexcision did extend clear down to the fascia of the lateral aspect of the pectoral muscle. A few bleeders were cauterized. Additional local was injected into the muscle and fascia. A few many clips were placed within the lumpectomy cavity to sreekanth the borders for future radiation treatment. The skin was then closed in layers using multiple interrupted 3-0 Vicryl dermal sutures followed by a running 4-0 Monocryl subcuticular stitch. EBL: 10 mL Specimen: Left breast lumpectomy cavity Post-operative Condition: stable Disposition: PACU
== END 2024-09-29 11:15 | disposition home or self-care (01) ==
PROVIDERS: Family Provider General Practice; Referring Provider Surgery; Visit Provider Surgery
PROC: (CPT 19301; principal; 2024-09-29 08:45)
DX: D05.12 Intraductal carcinoma in situ of left breast (principal)
CPT/HCPCS: 19301; J1100; J1885; J2250; J2405; J2704; J3010